=== PATIENT | female | born 1980 | race Caucasian/White ===

== ENCOUNTER 2016-09-03 16:12 | Outpatient (CLI) | payer OTHER ==
[~2016-09-03] VITALS: Ht 167.6 cm; Wt 70.0 kg
[2016-09-03] MEDS ORDERED: PRENTAB9 PO (16:27)
[2016-09-03 16:29] VITALS: BP 106/59
== END 2016-09-03 18:12 | disposition home or self-care (01) ==
LOC: M LDO 16:12
PROVIDERS: ATTEND Obstetrics & Gynecology
DX: O47.1 False labor at or after 37 completed weeks of gestation (principal); Z3A.39 39 weeks gestation of pregnancy

== ENCOUNTER 2016-09-08 07:23 | Inpatient (IN) | payer OTHER ==
[2016-09-08] VITALS (33 sets, daily range): BP systolic 92–147; BP diastolic 52–96
[~2016-09-08] VITALS: Ht 167.6 cm; Wt 70.0 kg
[~2016-09-08 07:23] MED LIST: PRENTAB9 PO
[2016-09-08] MEDS ORDERED: OXYTOCIN 30 UNITS IN 0.9% NaCl 500ML IV BAG (J2590) As Ordered ONE (08:40)
[2016-09-08] MEDS: LR 1,000 ML IV SCH ×3 (08:43→12:15)
[2016-09-08 08:47] LABS: MEAN CORPUSCULAR HEMOGLOBIN 31.7 pg (27.0-33.0); MEAN CORPUSCULAR HGB CONC 34.2 g/dl (32.0-36.5); MEAN CORPUSCULAR VOLUME 92.6 fl (80.0-96.0); RED CELL DISTRIBUTION WIDTH 12.6 % (11.5-14.5); WHITE BLOOD COUNT 9.3 K/mm3 (4.0-10.0)
[2016-09-08] MEDS ORDERED: LR 1,000 ML IV ONE (10:00)
[2016-09-08] MEDS ORDERED: FENTANYL 2MCG/ML ROPIVACAINE 0.2% IN 0.9% NACL 200ML IVBAG As Ordered ONE (10:03)
[2016-09-08] MEDS ORDERED: LACTATED RINGER'S 1000 ML IV PRN (11:00)
[2016-09-08] MEDS ORDERED: ONDANSETRON 4MG/2ML VIAL (J2405) IV PRN ×2 (11:00→18:15)
[2016-09-08] MEDS ORDERED: diphenhydrAMINE INJ 50MG/ML VIAL (J1200) IV PRN (11:00)
[2016-09-08] MEDS ORDERED: EPIDURAL/PCA KEYS XX PRN (11:00)
[2016-09-08] MEDS ORDERED: EPIDURAL COMMENT XX SCH (11:00)
[2016-09-08] MEDS ORDERED: ePHEDrine SULFATE 25 MG/5 ML(5MG/ML) SYRINGE IV PRN (11:00)
[2016-09-08] MEDS ORDERED: REFRIGERATOR IV KEYS XX PRN (11:00)
[2016-09-08] MEDS ORDERED: FENTANYL/ROPIVACAINE/NACL BAG 200 ML EPIDURAL SCH (11:00)
[2016-09-08] MEDS ORDERED: NALOXONE INJ 0.4 MG/1 ML VIAL (J2310) IV PRN (11:00)
[2016-09-08] MEDS ORDERED: OXYTOCIN DRIP 30 UNITS in APPROPRIATE DILUENT 1 EA IV SCH ×2 (15:30→18:02)
[2016-09-08] MEDS ORDERED: RHOGAM 300 MCG (1500 IU) INJ (J2790) IM SCH (18:15)
[2016-09-08] MEDS ORDERED: PROMETHAZINE 25 MG TAB PO PRN (18:15)
[2016-09-08] MEDS ORDERED: DIBUCAINE 1% OINTMENT 30GM TOP PRN (18:15)
[2016-09-08] MEDS ORDERED: ACETAMINOPHEN 500 MG TAB PO PRN (18:15)
[2016-09-08] MEDS ORDERED: METHYLERGONOVINE MALEATE 0.2 MG/ML VIAL (J2210) IM PRN (18:15)
[2016-09-08] MEDS ORDERED: MEASLES,MUMPS,RUBELLA VACCINE INJ (MMR-II) (90707) SC SCH (18:15)
[2016-09-08] MEDS ORDERED: IBUPROFEN 800 MG TAB PO PRN (18:15)
[2016-09-08] MEDS: DOCUSATE SODIUM 100 MG CAP PO SCH (21:14)
[2016-09-09 06:00] VITALS: BP 114/73
[2016-09-09] MEDS: PRENATAL VITAMIN TAB PO SCH (07:57)
[2016-09-09] MEDS: DOCUSATE SODIUM 100 MG CAP PO SCH ×2 (07:57→21:00)
[2016-09-09 10:00] VITALS: BP 91/54
[2016-09-09 18:00] VITALS: BP 128/81
[2016-09-10 06:00] VITALS: BP 113/68
--- NOTE | 2016-09-10 07:08 | DS.PDOC ---
Discharge Summary General Date of Admission Sep 08, 2016 at 08:08 Date of Discharge [id number] Discharge Summary PROCEDURES PERFORMED DURING STAY: spontaneous vaginal delivery ADMITTING DIAGNOSIS: 1. Active Labor DISCHARGE DIAGNOSES: 1. Healthy male infant HOSPITAL COURSE: Admitted for active labor and delivery. Uncomplicated, see delivery note. DISCHARGE MEDICATIONS: Motrin, Tylenol, Colace, Lanolin, Nor QD for PP BC Physical exam: see note from this morning LABORATORY DATA: Please see below. ACTIVITY: as tolerated. Nothing in vagina for 6 weeks. DIET: regular DISPOSITION:stable TIME SPENT ON DISCHARGE: Greater than 15 minutes. Sessions Vital Signs/I&Os Vital Signs Date Time Temp Pulse Resp B/P (MAP) Pulse Ox O2 Delivery O2 Flow Rate FiO2 09/10/16 06:00 98.6 60 18 113/68 (83) 98 Room Air I&O- Last 24 Hours up to 6 AM 09/10/16 06:00 Intake Total 280 ml Balance 280 ml Discharge Medications Scheduled Multivitamins/ ( 27-0.8 mg) 1 Tab Tab, 1 TAB PO DAILY, (Reported ) Allergies Coded Allergies: No Known Drug Allergy (Verified Allergy, Unknown, 09/08/16) SESSIONS,KRISTIE Campbell MD Sep 10, 2016 07:08
--- NOTE | 2016-09-10 07:12 | IPNPDOC ---
Text Note Date of Service The patient was seen on 09/10/16. NOTE PPD2 prog note States feeling well, no complaints. No heavy VB. Pain controlled. Voiding, ambulatory. Bonding well and breast feeding well. VSSAF CTAB RRR Ut at U-2, firm Ext no CCE a/p: Doing well. d/c this morning. To bonding if baby not released. Sessions VS,Martha, I+O VSMartha I+O Vital Signs Date Time Temp Pulse Resp B/P (MAP) Pulse Ox O2 Delivery O2 Flow Rate FiO2 09/10/16 06:00 98.6 60 18 113/68 (83) 98 Room Air I&O- Last 24 Hours up to 6 AM 09/10/16 06:00 Intake Total 280 ml Balance 280 ml SESSIONS,KRISTIE Campbell MD Sep 10, 2016 07:12
[2016-09-10] MEDS ORDERED: IBUP-1114 PO ×2 (07:33→07:36)
[2016-09-10] MEDS ORDERED: NUPE1OIN2 TOP (07:33)
[2016-09-10] MEDS ORDERED: COLA100C3 PO (07:33)
[2016-09-10] MEDS ORDERED: ACET50TA PO (07:33)
[2016-09-10] MEDS: PRENATAL VITAMIN TAB PO SCH (09:11)
[2016-09-10] MEDS: DOCUSATE SODIUM 100 MG CAP PO SCH (09:11)
== END 2016-09-10 10:55 | disposition home or self-care (01) | DRG 775 ==
LOC: M LDO 07:23 → M LDI 08:08 → M OBS 20:00
PROVIDERS: ADMIT Obstetrics & Gynecology; ATTEND Obstetrics & Gynecology
PROC: 10E0XZZ Delivery of Products of Conception, External Approach (ICD-10-PCS; principal; 2016-09-08)
DX: O80 Encounter for full-term uncomplicated delivery (principal); Z3A.39 39 weeks gestation of pregnancy; Z37.0 Single live birth